=== PATIENT | male | born 1930 | race Caucasian/White ===

== ENCOUNTER 2020-03-29 13:51 | Emergency (ER) | payer MEDICARE, OTHER ==
[~2020-03-29 13:51] MED LIST: ASPIRIN325 MG PO; CARDURA4 MG PO; CELEXA10 MG PO; CERTAGEN1 EACH PO; LIDOCAINE 2% TOP; LIDOCAINE 5% P1 EACH TOP; MIDODRINE HCL10 MG PO; NORCO 5-325 TA1 EACH PO; PRINIVIL20 MG PO; REMOVE; SINEQUAN10 MG PO; TAMSULOSIN HCL0.4 MG PO; ZOCOR20 MG PO; [UNRECOGNIZED DRUG - OTHER]
[2020-03-29 15:00] LABS: BASOPHIL 0.5 % (0-2); EOSINOPHIL 1.1 % (0-7); LYMPHOCYTE 11.8 % (15-48); MCH 25.6 pg (25.0-31.0); MCHC 30.8 g/dL (32.0-36.0); MCV 83.2 fL (78.0-100.0); MONOCYTE 8.7 % (0-12); MPV 9.7 fL (6.0-9.5); NEUTROPHIL 77.3 % (41-80); NRBC 0; PLT 300 K/uL (150-400); RBC 4.69 M/uL (4.70-6.00); RDW 16.9 % (11.5-14.0); WBC 8.1 K/uL (4.0-10.5)
[2020-03-29 15:04] LABS: INR 1.04 (0.9-1.2); PROTHROMBIN TIME 12.9 SECONDS (11.4-13.6); PTT 28.5 SECONDS (22.2-34.7)
[2020-03-29 15:22] LABS: ALBUMIN 3.4 g/dL (3.4-5.0); BILIRUBIN - TOTAL 0.3 mg/dL (0.2-1.0); BUN/CREAT RATIO (CALC) 16.9 RATIO; CREATININE 1.54 mg/dL (0.67-1.17); GLOBULIN (CALCULATION) 4.4 g/dL; POTASSIUM 3.8 mmol/L (3.5-5.1); TOTAL PROTEIN 7.8 g/dL (6.4-8.2)
[2020-03-29 16:20] LABS: BILIRUBIN NEGATIVE (NEGATIVE); BLOOD NEGATIVE Ery/uL (NEGATIVE); CLARITY CLEAR (CLEAR); COLOR YELLOW (YELLOW); GLUCOSE (U) NORMAL (NORMAL); LEUKOCYTES 1+ Leu/uL (NEGATIVE); NITRITE NEGATIVE (NEGATIVE); PROTEIN 1+ mg/dL (NEGATIVE); SPECIFIC GRAVITY 1.015 (1.001-1.030); UROBILINOGEN 0.2 mg/dL (0.2-1.0)
[2020-03-29 16:32] LABS: BACTERIA TRACE; URINARY RBC RARE
== END 2020-03-29 17:43 | disposition home or self-care (01) ==
LOC: FER 13:51
PROVIDERS: Emergency Medicine
DX: R42 Dizziness and giddiness (principal); N18.9 Chronic kidney disease, unspecified; R03.0 Elevated blood-pressure reading, without diagnosis of hypertension
CPT/HCPCS: 36415; 70450; 70551; 71045; 80053; 81001; 84484; 85025; 85610; 85730; 87040; 93005